=== PATIENT | female | born 1960 | race Hispanic/Latino ===

== ENCOUNTER 2025-06-29 18:22 | Emergency (ER) | payer OTHER ==
--- OUTSIDE RECORDS SUMMARY | 2025-06-29 18:25 | XMS REPORT | Continuity of Care Document ---
Author Name Unknown Address [address] [place] [address] [facility] Address [address] [place] [address] Care Team Providers Care Autocad Draftsman Name Role Phone Pcp, Patient Does Not Have A Primary Care Physic nerissa Semaj Stanton Attending Clinician Unavailable BUCK BRAGA Attending Clinician Unavailabl e Doctor Unassigned, [address] Attending Clinician U [facility], Cardiology - Clear Attending Clinician Sandra vailaCHRISTOPHER Srivastava Attending Clinician Unavailable LEIGHANN LANE Admitting Clinician Unavailable Problems Condition Name Condition Details Condition Category Status Onset Date Resolution Date Last Treatment Date Treating Clinician Comments Source Need for Tdap vaccinatio n Need for Tdap vaccinatio n Disease Active 05-22 00:00: 00 [facility] Obesity Obesity Disease Active 05-22 00:00: 00 Overview: Formattin g of this note might be different from the original. 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[facility] BV (bacterial vaginosis) BV (bacterial vaginosis) Disease Active 05-21 00:00: 00 [facility] [id number] Essential hypertensi on Problem [facility] [id number] History of breast cancer Problem [facility] [id number] Gastroesop hageal reflux disease, unspecifie d whether esophagiti s present Problem [facility] [id number] NAFLD (nonalcoho lic fatty liver disease) Problem [facility] [id number] Postmenopa usal osteoporos is Problem [facility] [id number] Hepatic cyst Problem [facility] [id number] Neuropathy Problem Com [facility] [id number] Obesity, Class I, BMI 30-34.9 Problem [facility] Allergies, Adverse Reactions, Alerts Allergy Name Allergy Type Status Severity Reaction(s) Onset Date Inactive Date Treating Clinician Comments Source NO KNOWN ALLERGIE S Drug Class Active [facility] Social History Social Habit Start Date Stop Date Quantity Comments Source History of Tobacco Use [facility] Sex Assigned At [facility] Alcohol intake 2015-05-22 00:00:00 2015-05-22 00:00:00 0 /d [facility] Tobacco use and exposure 2015-05-21 00:00:00 2015-05-21 00:00:00 Smokeless tobacco non-user [facility] Smoking Status Start Date Stop Date Source Never Smoker [facility] Medications Ordered Medication Name Filled Medication Name Start Date Stop Date Current Medication? Ordering Clinician Indication Dosage Frequency Signature (SIG) Comments Components Source Alendronate Sodium 70 MG Alendronate Sodium 70 MG 4-1 0- 00:00: 00 No Alendronat e Sodium 70 MG Olmesartan Medoxomil 20 MG Olmesartan Medoxomil 20 MG No 1{table t} QD Olmesartan Medoxomil 20 MG Famotidine 20 MG Famotidine 20 MG No 1{table t_at_be dtime_a s_neede d} QD Famotidine 20 MG Aspirin Aspirin No Aspirin Immunizations Ordered Immunization Name Filled Immunization Name Date Status Comments Source TDAP (ADACEL) VACCINE 2015-05-21 00:00:00 Completed [facility] TDAP (ADACEL) VACCINE 2015-05-21 00:00:00 Completed [facility] TD, NOS 2004-10-05 00:00:00 Completed [facility] TD, NOS 2004-10-05 00:00:00 Completed [facility] Fluad (IIV) - SDS - 0.5mL Fluad (IIV) - SDS - 0.5mL Unknown Completed [facility] Vital Signs Vital Name Observation Time Observation Value Comments S ource height 2025-01-24 15:30:00 59 [in_i] [facility] weight 2025-01-24 15:30:00 158.4 [lb_av] Co [facility]mon [facility] temperature 2025-01-24 15:30:00 97.2 [degF] Com mon [facility] bmi 2025-01-24 15:30:00 31.99 kg/m2 Comm [facility] oximetry 2025-01-24 15:30:00 99 % [facility] blood pressure systolic 2025-01-24 15:30:00 128 mm[Hg] [facility] blood pressure diastolic 2025-01-24 15:30:00 65 mm[Hg] Common [facility] height 2025-01-24 15:30:00 59 [in_i] [facility] weight 2025-01-24 15:30:00 158.4 [lb_av] Co mmon [facility] temperature 2025-01-24 15:30:00 97.2 [degF] Com [facility] bmi 2025-01-24 15:30:00 31.99 kg/m2 Comm on [facility] oximetry 2025-01-24 15:30:00 99 % [facility] blood pressure systolic 2025-01-24 15:30:00 128 mm[Hg] Common [facility] blood pressure diastolic 2025-01-24 15:30:00 65 mm[Hg] [facility] height 2024-10-26 14:20:00 59 [in_i] [facility] weight 2024-10-26 14:20:00 160.0 [lb_av] Co [facility] temperature 2024-10-26 14:20:00 98.5 [degF] Com [facility] bmi 2024-10-26 14:20:00 32.31 kg/m2 Comm [facility] oximetry 2024-10-26 14:20:00 97 % [facility] respiratory rate 2024-10-26 14:20:00 16 /min [facility] blood pressure systolic 2024-10-26 14:20:00 139 mm[Hg] Common [facility] blood pressure diastolic 2024-10-26 14:20:00 73 mm[Hg] [facility] height 2024-07-26 11:00:00 59 [in_i] [facility] weight 2024-07-26 11:00:00 158.2 [lb_av] Co [facility] temperature 2024-07-26 11:00:00 97.2 [degF] Com [facility] bmi 2024-07-26 11:00:00 31.95 kg/m2 [facility] oximetry 2024-07-26 11:00:00 96 % [facility] respiratory rate 2024-07-26 11:00:00 16 /min Common [facility] blood pressure systolic 2024-07-26 11:00:00 110 mm[Hg] [facility] blood pressure diastolic 2024-07-26 11:00:00 64 mm[Hg] [facility] height 2024-07-08 08:00:00 59 [in_i] [facility] weight 2024-07-08 08:00:00 156.8 [lb_av] Co [facility] temperature 2024-07-08 08:00:00 97.2 [degF] Com [facility] bmi 2024-07-08 08:00:00 31.67 kg/m2 Comm [facility] oximetry 2024-07-08 08:00:00 96 % [facility] respiratory rate 2024-07-08 08:00:00 16 /min Common [facility] blood pressure systolic 2024-07-08 08:00:00 139 mm[Hg] [facility] blood pressure diastolic 2024-07-08 08:00:00 68 mm[Hg] [facility] height 2024-04-08 08:00:00 59 [in_i] [facility] weight 2024-04-08 08:00:00 155 [lb_av] Comm on [facility] temperature 2024-04-08 08:00:00 97.4 [degF] Com mon [facility] bmi 2024-04-08 08:00:00 31.3 kg/m2 [facility] oximetry 2024-04-08 08:00:00 98 % [facility] respiratory rate 2024-04-08 08:00:00 16 /min Common [facility] blood pressure systolic 2024-04-08 08:00:00 132 mm[Hg] [facility] blood pressure diastolic 2024-04-08 08:00:00 80 mm[Hg] [facility] height 2024-01-26 13:40:00 59 [in_i] [facility] weight 2024-01-26 13:40:00 155.8 [lb_av] Co m[facility] temperature 2024-01-26 13:40:00 97.3 [degF] Com mon [facility] bmi 2024-01-26 13:40:00 31.46 kg/m2 Comm [facility] oximetry 2024-01-26 13:40:00 96 % [facility] respiratory rate 2024-01-26 13:40:00 16 /min [facility] blood pressure systolic 2024-01-26 13:40:00 126 mm[Hg] [facility] blood pressure diastolic 2024-01-26 13:40:00 65 mm[Hg] [facility] height 2023-12-31 09:40:00 59 [in_i] [facility] weight 2023-12-31 09:40:00 157.2 [lb_av] Co mmon [facility] temperature 2023-12-31 09:40:00 97.3 [degF] Com mon [facility] bmi 2023-12-31 09:40:00 31.75 kg/m2 [facility] oximetry 2023-12-31 09:40:00 97 % [facility] respiratory rate 2023-12-31 09:40:00 16 /min Common [facility] blood pressure systolic 2023-12-31 09:40:00 138 mm[Hg] [facility] blood pressure diastolic 2023-12-31 09:40:00 72 mm[Hg] [facility] blood pressure systolic 2023-12-31 09:40:00 138 mm[Hg] Common [facility] blood pressure diastolic 2023-12-31 09:40:00 72 mm[Hg] [facility] height 2023-12-31 09:40:00 59 [in_i] [facility] weight 2023-12-31 09:40:00 157.2 [lb_av] Co [facility]mon [facility] temperature 2023-12-31 09:40:00 97.3 [degF] Com mon [facility] bmi 2023-12-31 09:40:00 31.75 kg/m2 Comm [facility] oximetry 2023-12-31 09:40:00 97 % [facility] respiratory rate 2023-12-31 09:40:00 16 /min [facility] height 2023-09-30 10:40:00 59 [in_i] [facility] weight 2023-09-30 10:40:00 158.8 [lb_av] Co m[facility] temperature 2023-09-30 10:40:00 98.2 [degF] Com [facility] bmi 2023-09-30 10:40:00 32.07 kg/m2 [facility] oximetry 2023-09-30 10:40:00 99 % [facility] respiratory rate 2023-09-30 10:40:00 16 /min [facility] blood pressure systolic 2023-09-30 10:40:00 122 mm[Hg] [facility] blood pressure diastolic 2023-09-30 10:40:00 66 mm[Hg] [facility] height 2023-08-31 10:00:00 59 [in_i] [facility] weight 2023-08-31 10:00:00 157.8 [lb_av] Co mmon [facility] temperature 2023-08-31 10:00:00 97.5 [degF] Com mon [facility] bmi 2023-08-31 10:00:00 31.87 kg/m2 Comm [facility] oximetry 2023-08-31 10:00:00 97 % [facility] respiratory rate 2023-08-31 10:00:00 18 /min Common [facility] blood pressure systolic 2023-08-31 10:00:00 148 mm[Hg] Common [facility] blood pressure diastolic 2023-08-31 10:00:00 70 mm[Hg] [facility] Procedures Procedure Date / Time Performed Performing Clinicia n Source PHYSICIAN ORDERS 2023-04-02 05:01:00 Doctor Unas signed, [address] [facility] Encounters Start Date/Time End Date/Time Encounter Type Admission Type Attending Clinicians Care Facility Care Department Encounter ID Source 2024-10-24 07:56:00 Outpatient [facility] [id number] [facility] 2024-10-07 14:24:00 Outpatient [facility] [id number] [facility] 2024-07-22 08:23:00 Outpatient Sem[facility] [id number] [facility] 2024-07-06 08:08:01 Outpatient Sem[facility] [id number] [facility] 2023-12-29 08:24:01 Outpatient Semaj Stanton [facility] [id number] [facility] 2023-09-29 13:56:00 Outpatient Semaj Stanton [facility] [id number] [facility] 2023-09-24 08:59:01 Outpatient [facility] [id number] [facility] 2023-08-31 08:51:01 Outpatient Semaj Stanton [facility] [id number] [facility] 2025-01-24 00:00:00 2025-01-24 00:00:00 WELCOME TO MEDICARE PREV PHY EXAM [facility] [id number] [facility] 2025-01-24 00:00:00 2025-01-24 00:00:00 OFFICE VISIT ESTAB PT LEVEL 4 [facility] [id number] [facility] 2025-01-11 00:00:00 2025-01-11 00:00:00 (TEL) [facility] [id number] [facility] 2024-10-26 00:00:00 2024-10-26 00:00:00 OFFICE VISIT ESTAB PT LEVEL 4 [facility] ST[facility] [id number] [facility] 2024-10-11 00:00:00 2024-10-11 00:00:00 (TEL) [facility] ST[facility] [id number] [facility] 2024-10-07 00:00:00 2024-10-07 00:00:00 (TEL) [facility]C ST[facility] [id number] [facility] 2024-09-14 00:00:00 2024-09-14 00:00:00 (TEL) [facility] ST[facility] [id number] [facility] 2024-07-26 00:00:00 2024-07-26 00:00:00 OFFICE VISIT ESTAB PT LEVEL 4 [facility] ST[facility] [id number] [facility] 2024-07-26 00:00:00 2024-07-26 00:00:00 (TEL) [facility]C ST[facility] [id number] [facility] 2024-07-11 00:00:00 2024-07-11 00:00:00 (TEL) [facility]C ST[facility] [id number] [facility] 2024-07-08 00:00:00 2024-07-08 00:00:00 OFFICE VISIT ESTAB PT LEVEL 4 [facility] ST[facility] [id number] [facility] 2024-04-08 00:00:00 2024-04-08 00:00:00 OFFICE VISIT ESTAB PT LEVEL 4 [facility] ST[facility] [id number] [facility] 2024-03-31 00:00:00 2024-03-31 00:00:00 (TEL) [facility]C STL[facility]C [id number] [facility] 2024-03-18 00:00:00 2024-03-18 00:00:00 (TEL) [facility]C ST[facility]C [id number] [facility] 2024-01-28 00:00:00 2024-01-28 00:00:00 (TEL) [facility]C ST[facility] [id number] [facility] 2024-01-26 00:00:00 2024-01-26 00:00:00 OFFICE VISIT ESTAB PT LEVEL 3 [facility] ST[facility] [id number] [facility] 2024-01-07 00:00:00 2024-01-07 00:00:00 (TEL) STL[facility]C ST[facility] [id number] [facility] 2023-12-31 00:00:00 2023-12-31 00:00:00 WELCOME TO MEDICARE PREV PHY EXAM [facility]C ST[facility] [id number] [facility] 2023-12-31 00:00:00 2023-12-31 00:00:00 OFFICE VISIT ESTAB PT LEVEL 3 [facility] ST[facility] [id number] [facility] 2023-11-26 00:00:00 2023-11-26 00:00:00 (TEL) STL[facility]C ST[facility] [id number] [facility] 2023-09-30 00:00:00 2023-09-30 00:00:00 OFFICE VISIT ESTAB PT LEVEL 4 [facility] ST[facility] [id number] [facility] 2023-08-31 00:00:00 2023-08-31 00:00:00 OFFICE VISIT NEW PT LEVEL 4 [facility] [id number] [facility] 2023-08-01 14:28:00 2023-08-01 17:18:00 Emergency E BUCK BRAGA [facility] [id number] 01 Maribel santacruz 2023-04-02 00:00:00 2023-04-02 00:00:00 Orders Only Doctor Unassigned, [address] [facility] [id number] [facility] 2023-02-27 00:00:00 2023-02-27 00:00:00 Letter (Out) [facility] MED[facility] OFF[facility] BUILD[facility] [id number] [facility] 2023-02-25 11:16:00 2023-02-25 11:16:00 Outpatient SFA SFA [id number] Chase Mendosa 2023-02-19 11:24:13 2023-02-19 23:59:00 Outpatient CHRISTOPHER ROBLES [facility] [id number] [facility] 2023-02-18 09:15:42 2023-02-18 09:15:42 Outpatient SFA SFA [id number] Chase Mendosa 2022-08-19 10:17:37 2022-08-19 10:17:37 Outpatient SFA SFA [id number] Chase Mendosa Results Test Description Test Time Test Comments Results Result Co mments Source COMPREHENSIVE METABOLIC [id number] 03:13:51* Test Item Value Reference Range Interpretation Comme nts GLUCOSE (test code = 2217) 98 MG/DL 70-99 BUN (test code = 2208) 10 MG/DL 8-23 CREATININE (test code = 2214) 0.57 MG/DL 0.60-1.30 L eGFR (2020 CKD-EPI) (test code = ) 101 ML/MIN/1.73 >60 CALC BUN/CREAT (test code = 2234) 18 RATIO 6-28 SODIUM (test code = 2230) 144 MEQ/L 133-146 POTASSIUM (test code = 2227) 4.7 MEQ/L 3.5-5.4 CHLORIDE (test code = 2214) 106 MEQ/L 95-107 CARBON DIOXIDE (test code = 2205) 27 MEQ/L 19-31 CALCIUM (test code = 2208) 9.6 MG/DL 8.5-10.5 PROTEIN, TOTAL (test code = 2228) 7.3 G/DL 6.1-8.3 ALBUMIN (test code = 2200) 4.6 G/DL 3.5-5.2 CALC GLOBULIN (test code = 2239) 2.7 G/DL 1.9-3.7 CALC A/G RATIO (test code = 2233) 1.7 RATIO 1.0-2.6 BILIRUBIN, TOTAL (test code = 2206) 0.4 MG/DL See_Comment [Automated me ssage] The system which generated this result transmitted reference range: <=1.2. The reference range was not used to interpret this result as normal/abnormal. ALKALINE PHOSPHATASE (test code = 2203) 88 U/L 40-140 AST (test code = 2217) 18 U/L 9-40 ALT (test code = 2218) 26 U/L 5-40 LIPID [id number] 03:13:51* Test Item Value Reference Range Interpretation Comme nts CHOLESTEROL (test code = 2209) 171 MG/DL <200 TRIGLYCERIDES (test code = 2231) 94 MG/DL <150 HDL CHOLESTEROL (test code = 2219) 55 MG/DL >39 CALC LDL CHOL (test code = 2236) 97 MG/DL <100 NOTE: CALCULATED LDL IS BASED ON TON-DAVE METHOD WHICHINCLUDES ADJUSTABLE TRIGLYCERIDE:VLDL CHOLESTEROL RATIO.THIS FACTOR VARIES BY MEASURED TRIGLYCERIDE AND NON-HDLCHOLESTEROL CONCENTRATIONS WITH INCREASED CALCULATED LDL SEENIN HIGHER TRIGLYCERIDE OR LOWER NON-HDL SPECIMENS. FOR MOREINFORMATION, SEE CLIENT ANNOUNCEMENT AT [email or web address] RATIO LDL/HDL (test code = 2237) 1.76 RATIO <3.22 HEMOGLOBIN [id number] 02:03:14* Test Item Value Reference Range Interpretation Comme nts HEMOGLOBIN A1c (test code = 72430) 5.6 % 4.2-5.6 UNLESS OTHERWISE INDICATED, ALL TESTING PERFORMED AT [facility] [address] [place] [id number] CARTOGRAPHIC TECHNICIAN: ELOISE ESCALONA M.D. CLIA NUMBER [id number] [facility] [place] [id number]
[2025-06-29] MEDS ORDERED: ONDANSETRON 4 MG/2 ML VIAL ONE (18:42)
[2025-06-29] MEDS ORDERED: MORPHINE 4 MG/ML SYR ONE (18:42)
[2025-06-29] MEDS ORDERED: NA CHLORIDE 0.9% 1,000 ML ONE (18:42)
[2025-06-29 19:01] LABS: Absolute Lymphocytes (CBC) 2.6 K/uL (0.7-4.9); Hematocrit 44.5 % (36.0-45.0); Hemoglobin 15.4 g/dL (12.0-15.0); MCH 30.7 pg (27.0-35.0); MCHC 34.5 g/dL (32.0-36.0); MCV 88.9 fL (80-100); MPV 7.0 fL (7.6-11.3); Nucleated RBC Absolute Count 0.0 (0-0); Nucleated Red Blood Cells % 0.3 % (0-0); RBC Red Blood Cell Count 5.01 M/uL (3.86-4.86); White Blood Count 6.70 thou/uL (4.3-10.9)
[2025-06-29 19:17] LABS: ALT/SGPT 37.0 U/L (13-56); AST/SGOT 16.0 U/L (15-37); Albumin 3.9 g/dL (3.4-5.0); Albumin/Globulin Ratio 1.0 (1.1-1.8); Alkaline Phosphatase 63.0 U/L (45-117); Anion Gap 8.0 mEq/L (5.0-15.0); BUN Blood Urea Nitrogen 11.0 mg/dL (7-18); Globulin 4.1 g/dL (2.3-3.5); Glucose Level 112.0 mg/dL (74-106); Lipase 26.0 U/L (13-75); Potassium 4.0 mEq/L (3.5-5.1)
--- NOTE | 2025-06-29 19:52 | RAD REPORT ---
EXAMINATION: CT ABDOMEN AND PELVIS WITH CONTRAST CLINICAL INDICATION: ABD PAIN TECHNIQUE: CT abdomen and pelvis was performed, after the administration of IV contrast, [facility]. Axial, sagittal and coronal reconstructions were obtained. One or more of the following dose reduction techniques were used: Automated exposure control, adjustment of the mA and k V according to patient size, and iterative reconstruction. Unless otherwise specified, incidental findings do not require dedicated imaging follow-up. COMPARISON: 07/17/2015 FINDINGS: LOWER CHEST: The visualized lung bases are clear. LIVER: Prominent diffuse fatty liver. Benign cysts are present in the liver. Cholecystectomy clips. SPLEEN: Normal size. No focal lesion. PANCREAS: No mass, ductal dilation, or karla-pancreatic fluid. ADRENALS: Normal; no mass. KIDNEYS: Normal size and contour. No hydronephrosis. GASTROINTESTINAL TRACT: No evidence of free air, significant intra-abdominal free fluid, bowel obstru ction or abscess. A few mildly thickened and fluid-filled small bowel loops in the left abdomen. Moderate stool retention throughout the colon. APPENDIX: Appendix not visualized, but no inflammatory changes in region of appendix. LYMPH NODES: No lymphadenopathy. MUSCULOSKELETAL: Moderate lower lumbar spondylosis. IMPRESSION: Mildly fluid-filled and thickened small bowel loops in the left abdomen suggesting nonspecific enteri tis. Fatty liver.
--- NOTE | 2025-06-29 20:05 | EDPHYS ---
Physician Documentation [facility] Name: Marivel De Oliveira Age: 64 yrs Sex: Female : 1960 Arrival Date: 06/29/2025 Time: 18:22 Bed 5 Private MD: ED Physician Garth Browne HPI: 06/29 20:06 This 64 yrs old Female presents to ER via Wheelchair with complaints of sb4 Abdominal Pain. 20:06 Patient reports abdominal pain over the past several months. Has been seeing GI sb4 already. However, states that her pain has gotten worse over the past few days. Reports nausea, no vomiting or diarrhea. States she had a bowel movement earlier today. States that the pain is primarily on her right upper quadrant. No fever or chills. States that the pain is aching it hard for her to breathe. Historical: - Allergies: 18:34 No Known Allergies; me1 - PMHx: 18:34 Hypertensive disorder; me1 - PSHx: 18:34 Cholecystectomy; bilateral mastectomy; me1 - Immunization history:: Adult Immunizations up to date. - Infectious Disease History:: Denies. - Social history:: Smoking status: Patient denies any tobacco usage or history of. ROS: 20:06 Constitutional: Negative for fever, chills, and weight loss, sb4 20:06 Abdomen/GI: Positive for abdominal pain, 20:06 All other systems are negative, Exam: 20:06 Head/Face: Normocephalic, atraumatic. Eyes: Extra-ocular motions intact. Periorbital sb4 areas with no swelling, redness, or edema. ENT: Mucous membranes moist. Cardiovascular: Regular rate and rhythm with a normal S1 and S2. Respiratory: No increased work of breathing, no retractions or nasal flaring. Skin: Warm, dry with normal turgor. Normal color with no rashes, no lesions, and no evidence of cellulitis. 20:06 Constitutional: The patient appears alert, awake, uncomfortable, 20:06 Abdomen/GI: Inspection: abdomen appears normal, Bowel sounds: normal, Palpation: soft, mild abdominal tenderness, in all quadrants, Vital Signs: 18:32 BP 151 / 87; Pulse 102; Resp 18; Temp 98.4; Pulse Ox 99% ; Weight 68.04 kg; Height 5 me1 ft. 4 in. ; Pain 10/10; 19:21 BP 132 / 72; Pulse 76; Resp 17 S; Pulse Ox 100% on R/A; Pain 10/10; lg3 20:35 BP 126 / 72; Pulse 84; Resp 16 S; Pulse Ox 100% on R/A; lg3 18:32 Body Mass Index 25.75 (68.04 kg, 162.56 cm) me1 18:32 Pain Scale: Adult me1 19:21 Pain Scale: Adult lg3 MDM: 18:28 Medical Screening Exam initiated sb4 20:07 Differential diagnosis: Pancreatitis, colitis, diverticulitis, gastritis, GERD, peptic sb4 ulcer disease. Data reviewed: vital signs, nurses notes, lab test result(s), radiologic studies, and as a result, I will discharge patient. Historians other than the Patient: Spouse/Significant Other: . Counseling: I had a detailed discussion with the patient and/or guardian regarding the historical points, exam findings, and any diagnostic results supporting the discharge/admit diagnosis, lab results, radiology results, the need for outpatient follow up, a engineer technician, to return to the emergency department if symptoms worsen or persist or if there are any questions or concerns that arise at home. 06/29 18:37 Order name: CBC with Diff; Complete Time: 19:09 4 06/29 18:37 Order name: CMP; Complete Time: 19:19 sb4 06/29 18:37 Order name: Lipase; Complete Time: 19:19 sb4 06/29 18:37 Order name: CT Abd/Pelvis - IV Contrast Only; Complete Time: 19:52 sb4 06/29 18:37 Order name: IV Saline Lock; Complete Time: 18:52 sb4 06/29 18:37 Order name: Labs collected and sent; Complete Time: 18:52 sb4 06/29 19:53 Order name: PO challenge; Complete Time: 20:35 sb4 Administered Medications: 18:52 Drug: NS 0.9% IV 1000 ml IV at 1 bolus Per protocol; to be given as a bolus over 60 nh2 minutes Route: IV; Rate: 1 bolus; Site: right antecubital; 20:35 Follow up: Response: No adverse reaction; IV Status: Completed infusion; IV Intake: lg3 1000ml 18:53 Drug: Ondansetron IVP 4 mg IVP once; over 2 minutes Route: IVP; Site: right antecubital;nh2 20:35 Follow up: Response: No adverse reaction lg3 18:53 Drug: morphine IVP or IV 4 mg IVP once over 4 mins Route: IVP; Infused Over: 4 mins; nh2 Site: right antecubital; 20:35 Follow up: Response: No adverse reaction; Marked relief of symptoms lg3 19:24 Drug: Droperidol IVP 2.5 mg IVP once Route: IVP; Site: right antecubital; lg3 20:35 Follow up: Response: No adverse reaction; Marked relief of symptoms lg3 Disposition Summary: 06/29/25 20:05 Discharge Ordered Notes: Location: Home sb4 Problem: an ongoing problem sb4 Symptoms: have improved sb4 Condition: Stable sb4 Diagnosis - Enteritis sb4 - Fatty (change of) liver, not elsewhere classified sb4 - Abdominal pain, Generalized sb4 Followup: sb4 - With: Yadira Chan MD - When: As needed - Reason: Recheck today's complaints, Re-evaluation by your physician Discharge Instructions: - Discharge Summary Sheet sb4 - Abdominal Pain, Adult, [id number] sb4 - Nonalcoholic Fatty Liver Disease Diet, Adult sb4 Forms: - Patient Portal Instructions sb4 - Leadership Thank You Letter sb4 Prescriptions: - Zofran 4 mg Oral Tablet - take 1 tablet ORAL route every 12 hours As needed; 20 tablet; Refills: 0, sb4 Product Selection Permitted - dicyclomine 20 mg Oral tablet - take 1 tablet ORAL route 3 times per day PRN pain/cramps; 20 tablet; Refills: sb4 0, Product Selection Permitted Addendum: 07/01/2025 07:03 Co-signature as Attending Physician, Garth Browne MD I reviewed the patient's care r n provided by the Advanced Practice Provider and agree with the diagnosis and treatment plan. Signatures: Dispatcher [employer] Garth Mayorga MD MD rn Able, Lacie, RN RN lg3 Esperanza Rangel PABenitaC PABenitaC sb4 Wendy Palmer RN RN me1 Yong Peraza Jr RN RN nh2
--- NOTE | 2025-06-29 20:05 | ER ---
Nurse's Notes [facility] Name: Marivel De Oliveira Age: 64 yrs Sex: Female : 1960 Arrival Date: 06/29/2025 Time: 18:22 Bed 5 Private MD: Diagnosis: Enteritis;Fatty (change of) liver, not elsewhere classified;Abdominal pain, Generalized Presentation: 06/29 18:32 Chief complaint: Patient states: c/o RUQ and R neck pain that started 3 days ago. Pain me1 07/14. Denies n/v/d. Last BM 3 hours ago. Coronavirus screen: Vaccine status: Patient reports being unvaccinated. Ebola Screen: No symptoms or risks identified at this time. Initial Sepsis Screen: Does the patient meet any 2 criteria? HR > 90 bpm. Does the patient have a suspected source of infection? No. Patient's initial sepsis screen is negative. Risk Assessment: Do you want to hurt yourself or someone else? Patient reports no desire to harm self or others. Onset of symptoms was June 26, 2025. 18:32 Method Of Arrival: Wheelchair me1 18:32 Acuity: KYRIE 3 me1 Historical: - Allergies: 18:34 No Known Allergies; me1 - PMHx: 18:34 Hypertensive disorder; me1 - PSHx: 18:34 Cholecystectomy; bilateral mastectomy; me1 - Immunization history:: Adult Immunizations up to date. - Infectious Disease History:: Denies. - Social history:: Smoking status: Patient denies any tobacco usage or history of. Screenin:55 [facility] ED Fall Risk Assessment (Adult) History of falling in the last 3 months, nh2 including since admission No falls in past 3 months (0 pts) Confusion or Disorientation No (0 pts) Intoxicated or Sedated No (0 pts) Impaired Gait No (0 pts) Mobility Assist Device Used No (0 pt) Altered Elimination No (0 pt) Score/Fall Risk Level 0 - 2 = Low Risk Oriented to surroundings, Maintained a safe environment, Educated pt \T\ family on fall prevention, incl call for assistance when getting out of bed, Assessed \T\ reinforced patient's understanding of fall precautions, Hourly rounding (assess needs \T\ fall precautionary measures) done. Abuse screen: Denies threats or abuse. Denies injuries from another. Nutritional screening: No deficits noted. Tuberculosis screening: No symptoms or risk factors identified. Assessment: 18:45 General: Appears distressed, uncomfortable, Behavior is anxious, crying, restless. nh2 Pain: Complains of pain in right upper quadrant Pain radiates to R side of neck Pain currently is 10 out of 10 on a pain scale. Quality of pain is described as aching, Pain began 3 hours ago. Is continuous. Neuro: Level of Consciousness is awake, alert, obeys commands, Oriented to person, place, time, situation. Cardiovascular: Denies chest pain, Patient's skin is warm and dry. Rhythm is sinus rhythm. Respiratory: Reports pain with respiration since 1700 today Airway is patent Trachea midline Respiratory effort is even, unlabored, Respiratory pattern is regular, tachypnea Breath sounds are clear bilaterally. Onset: The symptoms/episode began/occurred gradually, the patient has moderate shortness of breath. GI: Abdomen is round obese, Bowel sounds present X 4 quads. Abd is soft X 4 quads Abdomen is tender to palpation in right upper quadrant Guarding noted in right upper quadrant Patient currently denies nausea, vomiting. GI: Last BM was June 29, 2025. : No signs and/or symptoms were reported regarding the genitourinary system. EENT: No signs and/or symptoms were reported regarding the EENT system. Derm: Skin is intact, Skin is pink, warm \T\ dry. Skin temperature is warm. Musculoskeletal: Circulation, motion, and sensation intact. Range of motion: intact in all extremities. 19:21 General: Appears in no apparent distress. uncomfortable, Behavior is calm, cooperative, lg3 anxious. Pain: Complains of pain in right upper quadrant and right lower quadrant Pain currently is 10 out of 10 on a pain scale. Neuro: No deficits noted. [place] Agitation-Sedation Scale (RASS): 0 - Alert and Calm Level of Consciousness is awake, alert, obeys commands, Oriented to person, place, time, situation. Cardiovascular: No deficits noted. Denies chest pain, shortness of breath, Capillary refill < 3 seconds Clubbing of nail beds is absent JVD is absent Patient's skin is warm and dry. Respiratory: No deficits noted. Airway is patent Respiratory effort is even, unlabored, Respiratory pattern is regular, symmetrical. GI: Abdomen is round non-distended, obese, Bowel sounds present X 4 quads. Abd is soft X 4 quads Abdomen is tender to palpation in right upper quadrant and right lower quadrant Guarding noted in right lower quadrant. : No signs and/or symptoms were reported regarding the genitourinary system. EENT: No deficits noted. No signs and/or symptoms were reported regarding the EENT system. Derm: No deficits noted. No signs and/or symptoms reported regarding the dermatologic system. Skin is intact, is healthy with good turgor, Skin is dry, Skin is normal, Skin temperature is warm. Musculoskeletal: No deficits noted. No signs and/or symptoms reported regarding the musculoskeletal system. Circulation, motion, and sensation intact. Range of motion: intact in all extremities. 20:35 Reassessment: Patient appears in no apparent distress at this time. No changes from lg3 previously documented assessment. Patient and/or family updated on plan of care and expected duration. Pain level reassessed. Patient is alert, oriented x 3, equal unlabored respirations, skin warm/dry/pink. Patient states feeling better. Patient states symptoms have improved. Vital Signs: 18:32 BP 151 / 87; Pulse 102; Resp 18; Temp 98.4; Pulse Ox 99% ; Weight 68.04 kg; Height 5 me1 ft. 4 in. ; Pain 10/10; 19:21 BP 132 / 72; Pulse 76; Resp 17 S; Pulse Ox 100% on R/A; Pain 10/10; lg3 20:35 BP 126 / 72; Pulse 84; Resp 16 S; Pulse Ox 100% on R/A; lg3 18:32 Body Mass Index 25.75 (68.04 kg, 162.56 cm) me1 18:32 Pain Scale: Adult me1 19:21 Pain Scale: Adult lg3 ED Course: 18:23 Patient arrived in ED. mr 18:28 Esperanza Rangel PA-C is PHCP. sb4 18:28 Garth Browne MD is Attending Physician. sb4 18:34 Triage completed. me1 18:34 Arm band placed on Patient placed in an exam room. me1 18:43 Yong Peraza Jr, RN is Primary Nurse. nh2 18:45 Inserted saline lock: 20 gauge in right antecubital area, using aseptic technique. nh2 Blood collected. Flushed with 10 mL NS. 18:55 Patient has correct armband on for positive identification. Bed in low position. Call nh2 light in reach. Side rails up X 1. Provided Education on: using call light for assistance. 19:21 Client placed on continuous cardiac and pulse oximetry monitoring. NIBP monitoring lg3 applied. Door closed. Noise minimized. Warm blanket given. Pillow given. Family accompanied patient. 19:41 CT Abd/Pelvis - IV Contrast Only In Process Unspecified. EDMS 20:04 Yadira Chan MD is Referral Physician. sb4 20:36 No provider procedures requiring assistance completed. IV discontinued, intact, lg3 bleeding controlled, No redness/swelling at site. Pressure dressing applied. Administered Medications: 18:52 Drug: NS 0.9% IV 1000 ml IV at 1 bolus Per protocol; to be given as a bolus over 60 nh2 minutes Route: IV; Rate: 1 bolus; Site: right antecubital; 20:35 Follow up: Response: No adverse reaction; IV Status: Completed infusion; IV Intake: lg3 1000ml 18:53 Drug: Ondansetron IVP 4 mg IVP once; over 2 minutes Route: IVP; Site: right antecubital;nh2 20:35 Follow up: Response: No adverse reaction lg3 18:53 Drug: morphine IVP or IV 4 mg IVP once over 4 mins Route: IVP; Infused Over: 4 mins; nh2 Site: right antecubital; 20:35 Follow up: Response: No adverse reaction; Marked relief of symptoms lg3 19:24 Drug: Droperidol IVP 2.5 mg IVP once Route: IVP; Site: right antecubital; lg3 20:35 Follow up: Response: No adverse reaction; Marked relief of symptoms lg3 Medication: 19:15 VIS not applicable for this client. nh2 Intake: 20:35 IV: 1000ml; Total: 1000ml. lg3 Outcome: 20:05 Discharge ordered by . sb4 20:36 Discharged to home ambulatory, with family, lg3 20:36 Condition: stable 20:36 Discharge instructions given to patient, Instructed on discharge instructions, follow up and referral plans. medication usage, Demonstrated understanding of instructions, follow-up care, medications, Prescriptions given X 2, 20:36 Patient left the ED. lg3 Signatures: Dispatcher [employer] EDAK Debbie Payne, Rinku Reg Cheyanne Plasencia, RN RN lg3 Esperanza Rangel, PABenitaC PABenitaC sb4 Wendy Palmer RN RN me1 Stu Gordon, Yong RN RN nh2 Corrections: (The following items were deleted from the chart) 19:14 18:45 Cardiovascular: Denies chest pain, Patient's skin is warm and dry. nh2 nh2
[2025-06-29 21:11] VITALS: TEMP 98.4
[2025-06-29 21:12] VITALS: O2SAT 100
[2025-06-29 21:13] VITALS: BP 126/72
== END 2025-06-29 20:36 | disposition home or self-care (01) ==
LOC: ER 18:22
DX: K52.9 Noninfective gastroenteritis and colitis, unspecified (principal); K76.0 Fatty (change of) liver, not elsewhere classified; I10 Essential (primary) hypertension
CPT/HCPCS: 96361; 85025; 36415; 83690; 80053; 74177; 96375; 96374; 99284; Q9967; J2405; J1790; J7030